=== PATIENT | female | born 1995 | race Caucasian/White ===

== ENCOUNTER 2020-08-10 12:25 | Outpatient (REF) | payer OTHER, SELFPAY | END 2020-08-10 12:26 | disposition home or self-care (01) | LOC: HO.LAB 12:25 | PROVIDERS: Visit Provider Internal Medicine | DX: Z20.828 Contact with and (suspected) exposure to other viral communicable diseases (principal) | CPT/HCPCS: 36415; C9803; U0003 ==

== ENCOUNTER 2020-11-02 22:05 | Emergency (ER) | payer OTHER, SELFPAY ==
--- NOTE | 2020-11-03 00:22 | PC.NURSE ---
0020: ATTEMPTED TO CALL PATIENT INTO ROOM. TOLD BY REGISTRATION THAT PATIENT SAID SHE WAS GOING OUT TO HER CAR. AT THIS TIME SHE HAS NOT RETURNED.
== END 2020-11-03 00:33 | disposition left against medical advice (07) ==
PROVIDERS: Emergency Provider Emergency Medicine
DX: R10.9 Unspecified abdominal pain (principal)

== ENCOUNTER 2020-11-03 12:57 | Emergency (ER) | payer OTHER, SELFPAY ==
--- NOTE | ~2020-11-03 | US_ITS ---
EXAMINATION: ULTRASOUND PELVIC, COMPLETE CLINICAL INFORMATION: . Left-sided pain. Concern for ectopic. COMPARISON: None. TECHNIQUE: Transvaginal: Used to better visualize pelvic structures Transabdominal: Not adequate for visualization Spectral Doppler and color Doppler exam was utilized. LMP: 09/20/2020. Gestational age by LMP is 6 weeks 2 days. MIREYA by LMP is 06/27/2021 FINDINGS: UTERUS: There is a single intrauterine gestation. There is a yolk sac and pole. heart rate 114 bpm. [place]-rump length 0.24 cm. Dating by this measurement is 5 weeks 6 days. MIREYA by ultrasound 06/30/2021 Does appear to be a small subchorionic bleed measuring 0.8 x 0.4 cm, image 52/69. ADNEXA: Ovarian vascularity:Doppler demonstrates both arterial and venous vascular flow in the right and left ovary. No evidence of ovarian torsion. Right Ovary: Corpus luteum cyst right ovary measuring 1.4 x 1.2 x 1.1 cm. The right ovary measures 2.9 x 1.5 x 2.3 cm. Left Ovary: Unremarkable. 2.3 x 1.4 x 1.4 cm Cul-de-sac: No Fluid US/US OB <= 14 weeks fetus IMPRESSION: 1. Single intrauterine gestation with estimated gestational age by this ultrasound of 5 weeks 6 days. MIREYA 06/30/2021. heart rate 114 bpm. 2. Small subchorionic bleed.
--- NOTE | ~2020-11-03 | US_ITS ---
EXAMINATION: ULTRASOUND PELVIC, COMPLETE CLINICAL INFORMATION: . Left-sided pain. Concern for ectopic. COMPARISON: None. TECHNIQUE: Transvaginal: Used to better visualize pelvic structures Transabdominal: Not adequate for visualization Spectral Doppler and color Doppler exam was utilized. LMP: 09/20/2020. Gestational age by LMP is 6 weeks 2 days. MIREYA by LMP is 06/27/2021 FINDINGS: UTERUS: There is a single intrauterine gestation. There is a yolk sac and pole. heart rate 114 bpm. [place]-rump length 0.24 cm. Dating by this measurement is 5 weeks 6 days. MIREYA by ultrasound 06/30/2021 Does appear to be a small subchorionic bleed measuring 0.8 x 0.4 cm, image 52/69. ADNEXA: Ovarian vascularity:Doppler demonstrates both arterial and venous vascular flow in the right and left ovary. No evidence of ovarian torsion. Right Ovary: Corpus luteum cyst right ovary measuring 1.4 x 1.2 x 1.1 cm. The right ovary measures 2.9 x 1.5 x 2.3 cm. Left Ovary: Unremarkable. 2.3 x 1.4 x 1.4 cm Cul-de-sac: No Fluid US/US OB transvaginal IMPRESSION: 1. Single intrauterine gestation with estimated gestational age by this ultrasound of 5 weeks 6 days. MIREYA 06/30/2021. heart rate 114 bpm. 2. Small subchorionic bleed.
[2020-11-03 13:52] VITALS: BP 124/70; PULSE 84; RESP 16; TEMP 36.9; O2SAT 99; BMI 28.3
[2020-11-03 14:04] LABS: Appearance Urine CLEAR; Color Urine YELLOW; Glucose Urine UA NEG (NEG); Leukocyte Esterase Urine NEG (NEG); Nitrite Urine NEG (NEG); PH 6.5 (5.0-8.0); Urine Blood NEG (NEG); Urine Ketones NEG (NEG); Urine Protein NEG (NEG-TRACE)
[2020-11-03 14:05] LABS: UPreg QC Valid YES; Urine Pregnancy POSITIVE (NEGATIVE)
[2020-11-03 14:10] LABS: Bacteria Urine TRACE /LPF; RBC Urine 0 /HPF (0); Squamous Epithelial Cell Urine 2+ /LPF; WBC Urine 0-2 /HPF (0-4)
--- NOTE | 2020-11-03 19:43 | ED.ABDPAIN ---
HPI - Abdominal Pain General Chief Complaint: Abdominal Pain Stated Complaint: ABD PAIN Time Seen by Provider: 11/03/20 19:35 Source: patient Mode of arrival: ambulatory Limitations: no limitations History of Present Illness HPI narrative: 24 yo female here with left pelvic pain, vomiting since yesterday. No bleeding, vaginal discharge, urinary symptoms or diarrhea. LMP 1 month ago (unsure of specific date). MS1. Last ate pretzels 1 hr ago. Related Data Allergies Allergy/AdvReac Type Severity Reaction Status Date / Time No Known Allergies Allergy Verified 11/03/20 19:41 Review of Systems Review of Systems Yes all other systems are reviewed and are negative Constitutional: Reports no additional constitutional complaints, Denies body ache(s), Denies chills, Denies fever(s), Denies headache(s) and Denies weakness Eyes: Reports no additional eye complaints and Denies change in vision Reports system reviewed and no additional complaints, except as documented, Denies dizziness, Denies headache(s), Denies nasal congestion, Denies nasal discharge and Denies neck pain Cardiovascular: Reports no additional cardiovascular complaints, Denies chest pain, Denies leg edema and Denies dyspnea Respiratory: Reports no additional respiratory complaints, Denies cough and Denies dyspnea Gastrointestinal: Reports no additional gastrointestinal complaints, Denies abdominal pain, Denies diarrhea, Reports nausea and Reports vomiting Genitourinary: Reports no additional female genitourinary complaints, Reports pelvic pain and Denies urinary incontinence Musculoskeletal: Reports no additional musculoskeletal complaints, Denies back pain, Denies arthralgias, Denies joint swelling, Denies neck pain, Denies numbness and Denies tingling Skin/Breast: Reports system reviewed and no additional complaints, except as docu and Denies rash Reports system reviewed and no additional complaints, except as documented, Denies Abnormal speech present, Denies dizziness, Denies headache(s), Denies numbness, Denies tingling and Denies weakness Physical Exam Vital Signs: Vital Signs: Last Vital Signs Temp 98.4 F 11/03/20 13:52 Pulse 84 11/03/20 13:52 Resp 16 11/03/20 13:52 BP 124/70 11/03/20 13:52 Pulse Ox 99 11/03/20 13:52 Body Mass Index 28.3 Const: General: cooperative, healthy appearing, comfortable and no acute distress Orientation/consciousness: patient oriented x3 Limitations: no limitations HENMT: Head: Yes normal to inspection Ears: hearing grossly normal bilaterally General nose exam: Normal external nose present Face and sinus: Yes normal facial exam Mouth: Normal oral and palatal mucosa present Throat: Yes posterior oropharynx normal Eyes: General: appearance normal, both eyes and all related structures Pupils: Equal, round and reactive pupils present Neck: Neck: Yes normal visual inspection Chest: Chest palpation & inspection: normal inspection of the chest Resp: Effort & Inspection: normal respiratory effort Auscultation: clear to auscultation bilaterally Cardio: Rate: regular rate Rhythm: regular rhythm Peripheral pulses: Peripheral pulses 2+ throughout GI: Inspection: Yes normal to inspection Palpation (GI): Soft to palpation and Tenderness to palpation present (GI) (Left pelvic, +guarding, no rebound ) Auscultation: normal bowel sounds : Other: Kala GIL present for pelvic exam External Female Exam: normal external appearance Speculum Exam - Vagina: normal vaginal discharge (scant creamy discharge ) Speculum Exam - Cervix: normal appearance of the cervix and normal palpation Bimanual exam- vagina & uterus: normal palpation Bimanual Exam- Adnexa, other: tender (right normal ) on the left Back/Spine/Pelvis: Thoracic/Lumbar Spine: thoracic and lumbar spine normal to inspection Skin: General skin exam: no rashes or lesions noted Neuro: General: patient oriented x3, no focal motor deficits and normal sensation to monofilament Cranial nerves: Yes Equal, round and reactive pupils present Cognition (Neuro): normal cognition Speech: No Abnormal speech present Gait exam (Neuro): Normal gait present Motor exam (neuro): 5/5 motor strength present throughout Extrem: General: Yes normal to inspection Course Course Course Narrative: 24-year-old female here with left pelvic pain and cramping with vomiting times 24 hours. Menses is several days late. Urine is positive. On exam patient has left-sided pelvic discomfort with guarding but no rebound tenderness. Will need labs including beta quant, RH factor. US to r/o ectopic . 2100-Pending US. Pelvic exam shows scant vaginal discharge with mild left adnexal tenderness. Sexually active with one partner. Will send CT NG, BV, trich testing. Sign out to Dr Ying pending above. MDM - Abdominal Pain MDM Narrative Medical decision making narrative: , ectopic , PID, UTI Medical Records Attestation: I reviewed the patient's medical records. Lab Data Attestation: I reviewed the patient's lab results. Result diagrams: 11/03/20 20:06 11/03/20 20:06 Labs: Lab Results 11/03/20 11/03/20 11/03/20 Range/Units 13:46 13:46 20:05 WBC (4.8-10.8) X10*3/uL RBC (4.20-5.50) X10*6/uL Hgb (12.0-16.0) g/dl Hct (37-47) % MCV (80-98) fL MCH (27.0-33.0) pg MCHC (31.0-35.0) g/dl RDW (11.0-16.0) % Plt Count (160-400) X10*3/uL MPV (9.4-12.3) fL Immature Gran % (Auto) (0.0-0.4) % Neut % (Auto) (45-73) % Lymph % (Auto) (20-40) % [place] % (Auto) (2-11) % Eos % (Auto) (0-4) % Baso % (Auto) (0-2) % Lymph # (Auto) (1.2-4.9) X10*3/uL [place] # (Auto) (0.1-1.2) X10*3/uL Eos # (Auto) (0.0-0.4) X10*3/uL Baso # (Auto) (0.0-0.2) X10*3/uL Abs Immat Gran (auto) (0.00-0.03) X10*3/uL Absolute Neuts (auto) (2.0-8.3) X10*3/uL Absolute Nucleated RBC (0.0-0.012) X10*3/uL Nucleated RBC % (auto) (0.0-0.2) /100WBC Hold Blue Top Sodium (135-145) mmol/L Potassium (3.3-5.1) mmol/L Chloride (96-108) mmol/L Carbon Dioxide (22-29) mmol/L Anion Gap (12-20) BUN (9-16) mg/dL Creatinine (0.5-1.4) mg/dL Estim Creat Clear Calc Estimated GFR Random Glucose (60-115) mg/dL Calcium (8.4-10.2) mg/dL Total Bilirubin (0.0-1.0) mg/dL Direct Bilirubin (0.0-0.5) mg/dL AST (5-31) U/L ALT (0-31) U/L Alkaline Phosphatase (39-117) U/L Total Protein (6.5-8.0) g/dL Albumin (3.5-5.0) g/dL Urine Color YELLOW Urine Appearance CLEAR Urine pH 6.5 (5.0-8.0) Ur Specific [place] 1.020 (1.005-1.025) Urine Protein NEG (NEG-TRACE) MG/DL Urine Glucose (UA) NEG (NEG) MG/DL Urine Ketones NEG (NEG) MG/DL Urine Blood NEG (NEG) Urine Nitrite NEG (NEG) Ur Leukocyte Esterase NEG (NEG) Urine RBC 0 (0) /HPF Urine WBC 0-2 (0-4) /HPF Ur Squamous Epith Cells 2+ /LPF Urine Bacteria TRACE /LPF Urine Test POSITIVE H (NEGATIVE) Blood Type O Positive 11/03/20 11/03/20 11/03/20 Range/Units 20:06 20:06 20:06 WBC 6.6 (4.8-10.8) X10*3/uL RBC 4.53 (4.20-5.50) X10*6/uL Hgb 14.2 (12.0-16.0) g/dl Hct 42.8 (37-47) % MCV 94.5 (80-98) fL MCH 31.3 (27.0-33.0) pg MCHC 33.2 (31.0-35.0) g/dl RDW 11.9 (11.0-16.0) % Plt Count 219 (160-400) X10*3/uL MPV 11.2 (9.4-12.3) fL Immature Gran % (Auto) 0.9 H (0.0-0.4) % Neut % (Auto) 57.0 (45-73) % Lymph % (Auto) 32.8 (20-40) % [place] % (Auto) 7.1 (2-11) % Eos % (Auto) 1.7 (0-4) % Baso % (Auto) 0.5 (0-2) % Lymph # (Auto) 2.2 (1.2-4.9) X10*3/uL [place] # (Auto) 0.5 (0.1-1.2) X10*3/uL Eos # (Auto) 0.1 (0.0-0.4) X10*3/uL Baso # (Auto) 0.0 (0.0-0.2) X10*3/uL Abs Immat Gran (auto) 0.06 H (0.00-0.03) X10*3/uL Absolute Neuts (auto) 3.8 (2.0-8.3) X10*3/uL Absolute Nucleated RBC 0.000 (0.0-0.012) X10*3/uL Nucleated RBC % (auto) 0.0 (0.0-0.2) /100WBC Hold Blue Top SEE NOTE Sodium 138 (135-145) mmol/L Potassium 3.9 (3.3-5.1) mmol/L Chloride 103 (96-108) mmol/L Carbon Dioxide 25 (22-29) mmol/L Anion Gap 14 (12-20) BUN 11 (9-16) mg/dL Creatinine 0.76 (0.5-1.4) mg/dL Estim Creat Clear Calc 101.6 Estimated GFR > 60 Random Glucose 90 (60-115) mg/dL Calcium 9.2 (8.4-10.2) mg/dL Total Bilirubin 0.3 (0.0-1.0) mg/dL Direct Bilirubin (0.0-0.5) mg/dL AST 13 (5-31) U/L ALT 12 (0-31) U/L Alkaline Phosphatase 83 (39-117) U/L Total Protein 7.2 (6.5-8.0) g/dL Albumin 4.3 (3.5-5.0) g/dL Urine Color Urine Appearance Urine pH (5.0-8.0) Ur Specific [place] (1.005-1.025) Urine Protein (NEG-TRACE) MG/DL Urine Glucose (UA) (NEG) MG/DL Urine Ketones (NEG) MG/DL Urine Blood (NEG) Urine Nitrite (NEG) Ur Leukocyte Esterase (NEG) Urine RBC (0) /HPF Urine WBC (0-4) /HPF Ur Squamous Epith Cells /LPF Urine Bacteria /LPF Urine Test (NEGATIVE) Blood Type 11/03/20 Range/Units 20:06 WBC (4.8-10.8) X10*3/uL RBC (4.20-5.50) X10*6/uL Hgb (12.0-16.0) g/dl Hct (37-47) % MCV (80-98) fL MCH (27.0-33.0) pg MCHC (31.0-35.0) g/dl RDW (11.0-16.0) % Plt Count (160-400) X10*3/uL MPV (9.4-12.3) fL Immature Gran % (Auto) (0.0-0.4) % Neut % (Auto) (45-73) % Lymph % (Auto) (20-40) % [place] % (Auto) (2-11) % Eos % (Auto) (0-4) % Baso % (Auto) (0-2) % Lymph # (Auto) (1.2-4.9) X10*3/uL [place] # (Auto) (0.1-1.2) X10*3/uL Eos # (Auto) (0.0-0.4) X10*3/uL Baso # (Auto) (0.0-0.2) X10*3/uL Abs Immat Gran (auto) (0.00-0.03) X10*3/uL Absolute Neuts (auto) (2.0-8.3) X10*3/uL Absolute Nucleated RBC (0.0-0.012) X10*3/uL Nucleated RBC % (auto) (0.0-0.2) /100WBC Hold Blue Top Sodium (135-145) mmol/L Potassium (3.3-5.1) mmol/L Chloride (96-108) mmol/L Carbon Dioxide (22-29) mmol/L Anion Gap (12-20) BUN (9-16) mg/dL Creatinine (0.5-1.4) mg/dL Estim Creat Clear Calc Estimated GFR Random Glucose (60-115) mg/dL Calcium (8.4-10.2) mg/dL Total Bilirubin 0.3 (0.0-1.0) mg/dL Direct Bilirubin < 0.2 (0.0-0.5) mg/dL AST 13 (5-31) U/L ALT 13 (0-31) U/L Alkaline Phosphatase 86 (39-117) U/L Total Protein 7.5 (6.5-8.0) g/dL Albumin 4.4 (3.5-5.0) g/dL Urine Color Urine Appearance Urine pH (5.0-8.0) Ur Specific [place] (1.005-1.025) Urine Protein (NEG-TRACE) MG/DL Urine Glucose (UA) (NEG) MG/DL Urine Ketones (NEG) MG/DL Urine Blood (NEG) Urine Nitrite (NEG) Ur Leukocyte Esterase (NEG) Urine RBC (0) /HPF Urine WBC (0-4) /HPF Ur Squamous Epith Cells /LPF Urine Bacteria /LPF Urine Test (NEGATIVE) Blood Type [facility] Past Medical History Attestation statement: The following information was validated with the patient. Source: old records reviewed and nursing notes reviewed Medical History No known health problems Social History Social History Advance Directives: No Advance Directives Information Provided: No
--- NOTE | 2020-11-03 19:52 | PC.NURSE ---
[facility] CALLS AT 1948 TO REQUEST PATIENT'S QUANT TO BE DRAWN PRIOR TO US EXAM. THIS US NOTIFIED RN AT 1949 AND RN STATES BACK THAT THEY UNDERSTAND AND THEY COMPLETE IT IN A TIMELY MANNER.
[2020-11-03 20:15] LABS: MANUAL DIFF FLAG NO
[2020-11-03 20:16] LABS: Basophils Percent Auto 0.5 % (0-2); Eosinophils Absolute Auto 0.1 X10*3/uL (0.0-0.4); Eosinophils Percent Auto 1.7 % (0-4); Hematocrit 42.8 % (37-47); Hemoglobin 14.2 g/dl (12.0-16.0); Imm Gran Abs Auto 0.06 X10*3/uL (0.00-0.03); Imm Gran Pct Auto 0.9 % (0.0-0.4); Lymphocytes Absolute Auto 2.2 X10*3/uL (1.2-4.9); Lymphocytes Percent Auto 32.8 % (20-40); Mean Corpuscular HGB Conc 33.2 g/dl (31.0-35.0); Mean Corpuscular Hemoglobin 31.3 pg (27.0-33.0); Mean Corpuscular Volume 94.5 fL (80-98); Mean Platelet Volume 11.2 fL (9.4-12.3); Monocytes Absolute Auto 0.5 X10*3/uL (0.1-1.2); Monocytes Percent Auto 7.1 % (2-11); Neutrophils Absolute Auto 3.8 X10*3/uL (2.0-8.3); Platelet Count 219 X10*3/uL (160-400); Red Blood Count 4.53 X10*6/uL (4.20-5.50); Red Cell Distribution Width 11.9 % (11.0-16.0); White Blood Count 6.6 X10*3/uL (4.8-10.8)
[2020-11-03 20:44] LABS: Alanine Aminotransferase 12 U/L (0-31); Alanine Aminotransferase 13 U/L (0-31); Albumin Level 4.3 g/dL (3.5-5.0); Albumin Level 4.4 g/dL (3.5-5.0); Alkaline Phosphatase 83 U/L (39-117); Alkaline Phosphatase 86 U/L (39-117); Anion Gap 14 (12-20); Aspartate Amino Transferase 13 U/L (5-31); Bilirubin Direct < 0.2 mg/dL (0.0-0.5); Bilirubin Total 0.3 mg/dL (0.0-1.0); Blood Urea Nitrogen 11 mg/dL (9-16); Calcium 9.2 mg/dL (8.4-10.2); Carbon Dioxide 25 mmol/L (22-29); Chloride 103 mmol/L (96-108); Creatinine Clr Calc Pharmacy 101.6; Estimated Glomerular Filt Rate > 60; Glucose Random 90 mg/dL (60-115); Potassium 3.9 mmol/L (3.3-5.1); Sodium 138 mmol/L (135-145); Total Protein 7.2 g/dL (6.5-8.0); Total Protein 7.5 g/dL (6.5-8.0)
[2020-11-03 21:07] LABS: HCG Quantitative 19962 mIU/mL
[2020-11-03 21:51] VITALS: BP 117/61; PULSE 85; RESP 18; TEMP 36.8; O2SAT 100
[2020-11-04 05:08] LABS: CT PCR NOT DETECTED (Not Detect.); NG PCR NOT DETECTED (Not Detect.)
[2020-11-04 14:28] LABS: BV Int Neg Control Negative (Negative); BV Int Pos Control Positive (Positive)
== END 2020-11-03 22:53 | disposition home or self-care (01) ==
PROVIDERS: Emergency Medicine; Nurse Practitioner Family; Emergency Provider Emergency Medicine Emergency Medical Services
DX: O26.91 Pregnancy related conditions, unspecified, first trimester (principal); R10.2 Pelvic and perineal pain; Z3A.01 Less than 8 weeks gestation of pregnancy
CPT/HCPCS: 36415; 76801; 76817; 80053; 80076; 81001; 81025; 84702; 85025; 86900; 86901; 87480; 87491; 87510; 87591; 87660; 99283

== ENCOUNTER → 2020-11-29 14:42 | Outpatient (BNVA) | payer SELFPAY | DX: Z11.1 Encounter for screening for respiratory tuberculosis (principal) ==

== ENCOUNTER 2021-01-29 14:31 | Emergency (ER) | payer OTHER, SELFPAY ==
--- NOTE | ~2021-01-29 | US_ITS ---
EXAMINATION: A SONOGRAM OF THE LIMITED. CLINICAL INFORMATION: 80 weeks with cramping x4 COMPARISON: None TECHNIQUE: Transabdominal ultrasound imaging of pelvis is performed. . FINDINGS: There is a single live intrauterine fetus with a heart rate of 1 52 bpm. There is good movement visualized the placenta is anterior and is homogeneous. No focal lesion or hematoma seen. Both ovaries are not visualized US/US OB limited IMPRESSION: Live intrauterine fetus with good movement. heart rate is 152 bpm. Normal anterior placenta.
[2021-01-29 14:33] VITALS: BP 133/78; PULSE 100; RESP 18; TEMP 36.7; O2SAT 98; BMI 31.4
--- NOTE | 2021-01-29 15:04 | ED.GENADULT ---
HPI - General Adult General Chief complaint: General Medical Stated complaint: cramping () Time Seen by Provider: 01/29/21 14:53 Source: patient Mode of arrival: ambulatory Limitations: no limitations History of Present Illness HPI narrative: 25-year-old female currently 18 2/7 weeks with an MIREYA of 06/30/2021 here with complaints of lower abdominal cramping for the last 4 days. She has not had any bleeding. No urinary symptoms, fevers, chills, nausea, vomiting. Followed by [facility]. Related Data Allergies Allergy/AdvReac Type Severity Reaction Status Date / Time No Known Allergies Allergy Verified 11/03/20 19:41 Review of Systems Review of Systems: Yes all other systems are reviewed and are negative Constitutional: Constitutional: Reports no additional constitutional complaints, Denies body ache(s), Denies chills, Denies fever(s), Denies headache(s) and Denies weakness Eyes: Eyes: Reports no additional eye complaints and Denies change in vision ENT: Reports system reviewed and no additional complaints, except as documented, Denies dizziness, Denies headache(s), Denies nasal congestion, Denies nasal discharge and Denies neck pain Cardiovascular: Cardiovascular: Reports no additional cardiovascular complaints, Denies chest pain, Denies leg edema and Denies dyspnea Respiratory: Respiratory: Reports no additional respiratory complaints, Denies cough and Denies dyspnea Gastrointestinal: Gastrointestinal: Reports no additional gastrointestinal complaints, Reports abdominal pain (abdominal cramping ), Denies diarrhea, Denies nausea and Denies vomiting Genitourinary: Genitourinary: Reports no additional female genitourinary complaints and Denies urinary incontinence Musculoskeletal: Musculoskeletal: Reports no additional musculoskeletal complaints, Denies back pain, Denies arthralgias, Denies joint swelling, Denies neck pain, Denies numbness and Denies tingling Integumentary/Breasts: Skin/Breast: Reports system reviewed and no additional complaints, except as docu and Denies rash Neurologic: Reports system reviewed and no additional complaints, except as documented, Denies Abnormal speech present, Denies dizziness, Denies headache(s), Denies numbness, Denies tingling and Denies weakness REPLACED BY [facility] Past Medical History Attestation statement: The following information was validated with the patient. Source: old records reviewed and nursing notes reviewed Medical History No known health problems Social History Social History Alcohol intake: never Patient Tobacco Use Status: Never used Tobacco Use of substances other than those prescribed or required for medical reasons: No Advance Directives: No Advance Directives Information Provided: No Patient : No Physical Exam Vital Signs: Vital Signs: Last Vital Signs Temp 98.0 F 01/29/21 14:33 Pulse 100 01/29/21 14:33 Resp 18 01/29/21 14:33 BP 133/78 01/29/21 14:33 Pulse Ox 98 01/29/21 14:33 Body Mass Index 31.4 Const: General: cooperative, healthy appearing, comfortable and no acute distress Orientation/consciousness: patient oriented x3 Limitations: no limitations HENMT: Head: Yes normal to inspection Ears: hearing grossly normal bilaterally General nose exam: Normal external nose present Face and sinus: Yes normal facial exam Mouth: Normal oral and palatal mucosa present Throat: Yes posterior oropharynx normal Eyes: General: appearance normal, both eyes and all related structures Pupils: Equal, round and reactive pupils present Neck: Neck: Yes normal visual inspection Chest: Chest palpation & inspection: normal inspection of the chest Resp: Effort & Inspection: normal respiratory effort Auscultation: clear to auscultation bilaterally Cardio: Rate: regular rate Rhythm: regular rhythm Peripheral pulses: Peripheral pulses 2+ throughout GI: Other: + Auscultation: normal bowel sounds : 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: 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 External Female Exam: normal external appearance Speculum Exam - Vagina: normal appearance of the vagina Speculum Exam - Cervix: normal appearance of the cervix Back/Spine/Pelvis: Thoracic/Lumbar Spine: thoracic and lumbar spine normal to inspection Skin: General skin exam: no rashes or lesions noted Neuro: General: patient oriented x3, no focal motor deficits and normal sensation to monofilament Cranial nerves: Yes Equal, round and reactive pupils present Cognition (Neuro): normal cognition Speech: No Abnormal speech present Gait exam (Neuro): Normal gait present Motor exam (neuro): 5/5 motor strength present throughout Extrem: General: Yes normal to inspection, Yes no pedal edema and Yes no calf tenderness Course Course Course Narrative: 25 yo female currently 18 2/7 weeks here with complaints of lower abdominal cramping x 4 weeks with no vaginal bleeding. Followed by [facility]. Lives in [place]. Came here to [place] today. On exam well appearing. No focal tenderness in the abdomen. Again no reports of bleeding. FHT 155 D/w with Dr Price from OB here who recommends labs, UA, US, pelvic exam. Will place PIV and give NSB and PO tylenol and re-assess. 1649- pelvic exam shows a closed cervical os. No bleeding. Ultrasound confirms with good movement and heart tone of 150s. labs are all unremarkable. UA negative. Cramping resolved after 750ml NS, will let additional 250ml NS infuse. Updated Dr Price from OB who agrees patient can be discharged with her own OB follow-up Sunday. 1699-Sign out to Memo [employer]IM[employer] HERDER pending above. Medical Decision Making MDM Narrative Medical decision making narrative: Pre-term labor Dehydration Medical Records Medical records reviewed: Yes I reviewed the patient's medical records. Lab Data Lab results reviewed: Yes I reviewed the patient's lab results. Result diagrams: 01/29/21 15:44 01/29/21 15:44 Labs: Lab Results 01/29/21 01/29/21 01/29/21 Range/Units 15:44 15:44 15:47 WBC 7.1 (4.8-10.8) X10*3/uL RBC 3.52 L D (4.20-5.50) X10*6/uL Hgb 11.1 L D (12.0-16.0) g/dl Hct 32.7 L D (37-47) % MCV 92.9 (80-98) fL MCH 31.5 (27.0-33.0) pg MCHC 33.9 (31.0-35.0) g/dl RDW 11.6 (11.0-16.0) % Plt Count 159 L D (160-400) X10*3/uL MPV 11.2 (9.4-12.3) fL Immature Gran % (Auto) 2.0 H (0.0-0.4) % Neut % (Auto) 68.5 (45-73) % Lymph % (Auto) 20.7 (20-40) % [place] % (Auto) 7.6 (2-11) % Eos % (Auto) 1.1 (0-4) % Baso % (Auto) 0.1 (0-2) % Lymph # (Auto) 1.5 (1.2-4.9) X10*3/uL [place] # (Auto) 0.5 (0.1-1.2) X10*3/uL Eos # (Auto) 0.1 (0.0-0.4) X10*3/uL Baso # (Auto) 0.0 (0.0-0.2) X10*3/uL Abs Immat Gran (auto) 0.14 H (0.00-0.03) X10*3/uL Absolute Neuts (auto) 4.9 (2.0-8.3) X10*3/uL Absolute Nucleated RBC 0.000 (0.0-0.012) X10*3/uL Nucleated RBC % (auto) 0.0 (0.0-0.2) /100WBC Sodium 136 (135-145) mmol/L Potassium 3.8 (3.3-5.1) mmol/L Chloride 107 (96-108) mmol/L Carbon Dioxide 22 (22-29) mmol/L Anion Gap 11 L (12-20) BUN 8 L (9-16) mg/dL Creatinine 0.59 (0.5-1.4) mg/dL Estim Creat Clear Calc 131.2 Estimated GFR > 60 Random Glucose 102 (60-115) mg/dL Calcium 8.4 D (8.4-10.2) mg/dL Total Bilirubin 0.2 (0.0-1.0) mg/dL Direct Bilirubin < 0.2 (0.0-0.5) mg/dL AST 18 (5-31) U/L ALT 19 (0-31) U/L Alkaline Phosphatase 59 D (39-117) U/L Total Protein 5.7 L D (6.5-8.0) g/dL Albumin 3.3 L D (3.5-5.0) g/dL Beta HCG, Quant 49948 mIU/mL Urine Color YELLOW Urine Appearance HAZY Urine pH 6.5 (5.0-8.0) Ur Specific [place] 1.010 (1.005-1.025) Urine Protein NEG (NEG-TRACE) MG/DL Urine Glucose (UA) NEG (NEG) MG/DL Urine Ketones NEG (NEG) MG/DL Urine Blood NEG (NEG) Urine Nitrite NEG (NEG) Ur Leukocyte Esterase TRACE H (NEG) Urine RBC 0-2 (0) /HPF Urine WBC 1-4 (0-4) /HPF Ur Squamous Epith Cells 1+ /LPF Amorphous Sediment 2+ /LPF Urine Bacteria TRACE /LPF Imaging Data US - abdomen: Attestation: I personally reviewed and interpreted this imaging study as follows: Radiologist's impression: FINDINGS: There is a single live intrauterine fetus with a heart rate of 1 52 bpm. There is good movement visualized the placenta is anterior and is homogeneous. No focal lesion or hematoma seen. Both ovaries are not visualized US/US OB limited IMPRESSION: Live intrauterine fetus with good movement. heart rate is 152 bpm. Normal anterior placenta. Discharge Plan Discharge Clinical Impression: Abdominal cramping Currently Qualifiers: Weeks of gestation: 18 weeks Qualified Code(s): Z3A.18 - 18 weeks gestation of Patient Disposition: Home, Self-Care Instructions: Abdominal Pain (ED), at 15 to 18 Weeks (ED) Additional Instructions: Stay well hydrated call your OB Sunday to follow up We no longer have a labor and delivery unit but are always willing to see you. If you require further care then we can offer then we will refer you to [facility] Monitor and seek care for vaginal bleeding, continued abdominal pain
--- NOTE | 2021-01-29 15:16 | PC.NURSE ---
heart tones obtained, pt resting comfortably in stretcher eating popcorn.
[2021-01-29 15:50] LABS: MANUAL DIFF FLAG NO
[2021-01-29] MEDS: Acetaminophen 325 MG TABLET 975 MG PO (15:51)
[2021-01-29] MEDS: 0.9 % Sodium Chloride 1,000 ML 999 ML IV (15:51)
[2021-01-29 15:53] LABS: Basophils Percent Auto 0.1 % (0-2); Eosinophils Absolute Auto 0.1 X10*3/uL (0.0-0.4); Eosinophils Percent Auto 1.1 % (0-4); Hematocrit 32.7 % (37-47); Hemoglobin 11.1 g/dl (12.0-16.0); Imm Gran Abs Auto 0.14 X10*3/uL (0.00-0.03); Lymphocytes Absolute Auto 1.5 X10*3/uL (1.2-4.9); Lymphocytes Percent Auto 20.7 % (20-40); Mean Corpuscular HGB Conc 33.9 g/dl (31.0-35.0); Mean Corpuscular Hemoglobin 31.5 pg (27.0-33.0); Mean Corpuscular Volume 92.9 fL (80-98); Mean Platelet Volume 11.2 fL (9.4-12.3); Monocytes Absolute Auto 0.5 X10*3/uL (0.1-1.2); Monocytes Percent Auto 7.6 % (2-11); Neutrophils Absolute Auto 4.9 X10*3/uL (2.0-8.3); Neutrophils Percent Auto 68.5 % (45-73); Platelet Count 159 X10*3/uL (160-400); Red Blood Count 3.52 X10*6/uL (4.20-5.50); Red Cell Distribution Width 11.6 % (11.0-16.0); White Blood Count 7.1 X10*3/uL (4.8-10.8)
[2021-01-29 15:57] LABS: Glucose Urine UA NEG (NEG); Leukocyte Esterase Urine TRACE (NEG); Nitrite Urine NEG (NEG); PH 6.5 (5.0-8.0); UACC Culture Trigger YES; Urine Blood NEG (NEG); Urine Ketones NEG (NEG); Urine Protein NEG (NEG-TRACE)
[2021-01-29 16:07] LABS: Appearance Urine HAZY; Color Urine YELLOW
[2021-01-29 16:20] LABS: RBC Urine 0-2 /HPF (0); Squamous Epithelial Cell Urine 1+ /LPF
[2021-01-29 16:21] LABS: Amorphous Sediment Urine 2+ /LPF; Bacteria Urine TRACE /LPF
[2021-01-29 16:28] LABS: Alanine Aminotransferase 19 U/L (0-31); Albumin Level 3.3 g/dL (3.5-5.0); Alkaline Phosphatase 59 U/L (39-117); Anion Gap 11 (12-20); Aspartate Amino Transferase 18 U/L (5-31); Bilirubin Direct < 0.2 mg/dL (0.0-0.5); Blood Urea Nitrogen 8 mg/dL (9-16); Calcium 8.4 mg/dL (8.4-10.2); Carbon Dioxide 22 mmol/L (22-29); Chloride 107 mmol/L (96-108); Creatinine Clr Calc Pharmacy 131.2; Estimated Glomerular Filt Rate > 60; Glucose Random 102 mg/dL (60-115); Potassium 3.8 mmol/L (3.3-5.1); Sodium 136 mmol/L (135-145); Total Protein 5.7 g/dL (6.5-8.0)
[2021-01-29 16:36] LABS: Bilirubin Total 0.2 mg/dL (0.0-1.0)
[2021-01-29 16:54] LABS: HCG Quantitative 13993 mIU/mL
== END 2021-01-29 17:26 | disposition home or self-care (01) ==
PROVIDERS: Nurse Practitioner Family; Emergency Provider Emergency Medicine
DX: O26.892 Other specified pregnancy related conditions, second trimester (principal); R10.9 Unspecified abdominal pain; Z3A.18 18 weeks gestation of pregnancy
CPT/HCPCS: 36415; 76815; 80048; 80076; 81001; 81003; 84702; 85025; 96360; 99284

== ENCOUNTER 2021-10-01 19:51 | Emergency (ER) | payer OTHER, SELFPAY ==
[2021-10-01 19:54] VITALS: BP 127/82; PULSE 110; RESP 19; TEMP 37; O2SAT 98; BMI 30.2
--- NOTE | 2021-10-01 20:48 | ED.SKABFB ---
HPI - Skin/Abscess/Foreign Bdy General Chief complaint: Skin/Abscess/Foreign Body Stated complaint: abscess Time Seen by Provider: 10/01/21 20:41 Source: patient Mode of arrival: ambulatory Limitations: no limitations History of Present Illness HPI narrative: Patient noticed small swelling in the left axillary area for last 4 days getting bigger with increased tenderness does not get infection very often use warm compresses without much relief no fever patient is not anymore Related Data Previous Rx's Medication Instructions Recorded cephalexin 500 mg capsule 500 mg PO QID 10 Days #40 cap 10/01/21 doxycycline hyclate 100 mg tablet 100 mg PO BID #20 tab 10/01/21 ibuprofen 600 mg tablet 600 mg PO Q6H PRN #20 tab 10/01/21 Allergies Allergy/AdvReac Type Severity Reaction Status Date / Time No Known Allergies Allergy Verified 10/01/21 19:54 Review of Systems Review of Systems: Yes all other systems are reviewed and are negative PMFSH Past Medical History Medical History No known health problems Social History Social History Alcohol intake: never Patient Tobacco Use Status: Never used Tobacco Advance Directives: No Advance Directives Information Provided: Yes Physical Exam Vital Signs: Vital Signs: Last Vital Signs Temp 98.6 F 10/01/21 19:54 Pulse 110 H 10/01/21 19:54 Resp 19 10/01/21 19:54 BP 127/82 10/01/21 19:54 Pulse Ox 98 10/01/21 19:54 BMI result Body Mass Index 30.2 Appearance: Alert. Oriented X3. No acute distress. ENT: Pharynx normal. Oral Mucosa moist Neck: Normal inspection. Neck supple. CVS: Normal heart rate and rhythm. Pulses normal. Respiratory: No respiratory distress. Abdomen: Soft and nontender. Skin: 3 x 3 cm fluctuance tender swelling left axilla Neuro: Oriented X 3. Procedures Abscess I/D Site: upper extremity (Left axis) Side (if applicable): left Local Anesthetic: lidocaine 2% Amount of anesthesia used (mL): 5 Technique: incised with blade Amount of fluid expressed (mL): 3 Sent for culture/gram staining?: No Irrigation: No Packing used?: none Discharge Plan Discharge Clinical Impression: Abscess of skin or subcutaneous tissue Patient Disposition: Home, Self-Care Instructions: Abscess Incision and Drainage (DC) Additional Instructions: Local care as advised Warm compresses Antibiotic as prescribed For the PCP/ER if worsening of the swelling or pain Prescriptions: New cephalexin 500 mg capsule 500 mg PO QID 10 Days Qty: 40 0RF ibuprofen 600 mg tablet 600 mg PO Q6H PRN (Reason: pain) Qty: 20 0RF doxycycline hyclate 100 mg tablet 100 mg PO BID Qty: 20 0RF Interventions: ED Discharge Assessment Last Done: 10/01/21 21:41 Discharge Date/Time: 10/01/21 21:45
[2021-10-01] MEDS: cephALEXin 500 MG CAPSULE PO (21:25)
[2021-10-01] MEDS: Ibuprofen 600 MG TABLET PO (21:25)
[2021-10-01] MEDS: Lidocaine HCl 2 % MPF 5 ML VIAL INFILTRATI (21:26)
== END 2021-10-01 21:45 | disposition home or self-care (01) ==
PROVIDERS: Emergency Provider Internal Medicine
DX: L02.412 Cutaneous abscess of left axilla (principal)
CPT/HCPCS: 10060; 99284

== ENCOUNTER 2024-09-30 10:48 | Outpatient (AMB) | payer OTHER, SELFPAY ==
--- NOTE | 2024-09-30 11:08 | A.OFFPC_ITS ---
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 Patient was last seen about 5 years ago by [facility] and has not been seen in adult primary care in the past. Presenting with concerns related to hormonal contraceptive side effects and recurrent migraines. She has been using Nexplanon for approximately four years and notices significant hormonal changes since its insertion, such as increased facial hair and weight gain difficulties, prompting her desire to discuss alternate contraceptive methods. Reports monthly migraines characterized by unilateral pain and ocular involvement, seemingly triggered by stress and not relieved by typical analgesics. She experiences mild anxiety, attributed partially to the caregiving demands of her disabled son, and has had a non-cardiac chest pain episode evaluated in an ER setting. [facility] Medical History No known health problems Surgical History No pertinent past surgical history Family History Mother Hypertension Father No problems noted. Social History Housing: House Alcohol intake: never Patient Tobacco Use Status: Never used Tobacco e-Cigarette/Vaping Use: Never Used Second Hand Smoke Exposure: No service: No Current occupational status: employed Current occupational exposures/hazards: No Cognitive needs: No Hearing needs: No Vision needs: No Female Reproductive History Menstrual control method: implanted Total pregnancies: 1 Full term: 1 History of abnormal pap smear: No Questionnaire PHQ-9 Over the last 2 weeks, how often have you been bothered by any of the following problems? 1. Little interest or pleasure in doing things: not at all 2. Feeling down, depressed, or hopeless: not at all 3. Trouble falling or staying asleep, or sleeping too much: not at all 4. Feeling tired or having little energy: several days 5. Poor appetite or overeating: several days 6. Feeling bad about yourself - or that you are a failure or have let yourself or your family down: not at all 7. Trouble concentrating on things, such as reading the newspaper or watching television: not at all 8. Moving or speaking so slowly that other people could have noticed. Or the opposite - being so fidgety or restless that you have been moving around a lot more than usual: not at all 9. Thoughts that you would be better off or of hurting yourself in some way: not at all Total score: 2 Depression Screening Interpretation: Negative Depression Screening Done: Yes Source: Developed by Drs. Evan José, Freida Soriano, Rosendo Laguerre and colleagues, with an educational christie from [facility]. Thrive Questionnaire Date Thrive assessed: 09/30/24 I am a: Patient What is your living situation today?: I have a steady place to live Within the past 12 months, did the food you bought not last and you didn't have the money to get more?: Sometimes True Within the past 12 months, did you worry whether your food would run out before you got money to buy more?: Sometimes True Do you have trouble paying for medicines?: No Do you have trouble getting transportation to medical appointments?: No Do you have trouble paying your heating and electricity bill?: No Do you have trouble taking care of your child, family member or friend?: No Do you have trouble with day-to-day activities such as bathing, preparing meals, shopping, managing finances, etc.?: No Are you currently unemployed and looking for a job?: No Are you interested in more education?: I choose not to answer this question Please select the resources that you would like help with: None Currently or been in a relationship where the following occur: No concerns reported THRIVE Score: 2 AUDIT C Alcohol Use Questionnaire (AUDIT-C) 1. How often do you have a drink containing alcohol?: Never Total Score: 0 ZAY-7 AMB Questionnaire ZAY-7 Date ZAY - 7 assessed: 09/30/24 Feeling nervous, anxious, or on edge: 0 = Not at all Not being able to stop or control worryin = Not at all Worrying too much about different things: 0 = Not at all Trouble relaxin = Several days Being so restless that it is hard to sit still: 0 = Not at all Becoming easily annoyed or irritable: 0 = Not at all Feeling afraid as if something awful might happen: 0 = Not at all Total ZAY-7 score (0-4 normal; 5-9 mild; 10-14 moderate; 15-21 severe): 1 Source: Developed by Drs. Evan José, Freida Soriano, Rosendo Laguerre and colleagues, with an educational christie from [facility]. Review of Systems Const Denies body aches, Denies chills, Denies fever(s), Reports headache(s) (monthly) and Denies poor appetite Eyes Details: Difficulty with nighttime driving ENT Denies dysphagia, Denies dizziness, Reports headache(s) (monthly) and Denies odynophagia Card Denies chest pain, Denies irregular heart rhythm, Denies lightheadedness and Denies dyspnea Resp Denies dyspnea GI Denies abdominal pain, Denies constipation, Denies dysphagia, Denies diarrhea, Denies nausea, Denies odynophagia and Denies vomiting Reports no additional complaints Musc Reports no additional complaints and Denies abnormal gait Skin/Breast Reports system reviewed and no additional complaints, except as documented Neuro Denies abnormal gait, Denies dizziness and Reports headache(s) (monthly) Psych Reports no additional complaints Physical exam (Primary Care) Vital Signs: Last Vital Signs Pulse 76 09/30/24 11:10 BP 120/82 09/30/24 11:10 Pulse Ox 98 09/30/24 11:10 Oxygen Delivery Method Room Air 09/30/24 11:10 BMI result Body Mass Index 38.7 Tobacco/Smoking Status: Tobacco use Status Tobacco use date assessed 09/30/24 09/30/24 11:16 Patient Tobacco Use Status Never used Tobacco 09/30/24 11:16 e-Cigarette/Vaping Use Never Used 09/30/24 11:16 PHQ-9: PHQ-9 Score PHQ-9: Total score 2 09/30/24 11:16 Depression Screening Interpretation: Negative Thrive Assessment: Date of Thrive Assessment Date Thrive assessed 09/30/24 09/30/24 11:16 Currently or been in a relationship where the following occur: No concerns reported Const General: cooperative, healthy appearing, comfortable and no acute distress Orientation/consciousness: patient oriented x3 HENMT Head: Yes normocephalic Ears: hearing grossly normal bilaterally General nose exam: Normal external nose present Eyes General: appearance normal, both eyes and all related structures Conjunctivae: conjunctivae normal Neck Neck: Yes full ROM and Yes no lymphadenopathy Resp Effort & Inspection: normal respiratory effort Auscultation: clear to auscultation bilaterally, no crackles, no rales, no rhonchi and no wheezes Cardio Rate: regular rate Rhythm: regular rhythm Skin General skin exam: no rashes or lesions noted Neuro General: patient oriented x3 Gait exam (Neuro): Normal gait present Extrem General: Yes normal to inspection, Yes full ROM and No edema Psych Affect: normal affect Attitude: cooperative Insight: Good insight present (Psych) Judgement: Good judgement present (Psych) Coding Level of Care Code New Pt Level 4 (38211) Diagnoses Nexplanon in place Z97.5 Hirsutism L68.0 Anxiety F41.9 Migraine G43.909 Decreased vision H54.7 Obesity E66.9 Assessment & Plan Assessment & Plan (1) Nexplanon in place: Code(s): Z97.5 - Presence of (intrauterine) contraceptive device Category: Social Hx Plan: Referral placed today to gynecology for removal of the Nexplanon and discussion for non hormonal control options. (2) Hirsutism: Code(s): L68.0 - Hirsutism Category: Medical Plan: Patient having facial hair growth that began after the placement of Nexplanon. Referral placed today to gynecology for removal of the Nexplanon and discussion for non hormonal control options. (3) Anxiety: Code(s): F41.9 - Anxiety disorder, unspecified Category: Medical Plan: Patient having occasional anxiety referral placed to counseling today. Declines medication. (4) Migraine: Code(s): G43.909 - Migraine, unspecified, not intractable, without status migrainosus Category: Medical Plan: Patient complaining of migraine headaches typically once per month. She describes these headaches as one-sided often with ocular concerns as well. She uses Tylenol for the headaches without good relief. We will trial sumatriptan as needed for migraine headaches and follow up in 3 months. Reviewed red flag symptoms of migraines and when to present for re-evaluation. (5) Decreased vision: Code(s): H54.7 - Unspecified visual loss Category: Medical Plan: Referral placed to eye doctor today for difficulty driving at night. (6) Obesity: Code(s): E66.9 - Obesity, unspecified Category: Medical Plan: Healthy diet and regular exercise is encouraged. Plan Ordered for blood work and plan to follow up in 3 months for annual physical. Patient was informed and verbally consented to the use of an ambient scribe for clinic note documentation during this visit. This note was constructed using voice recognition software. While every effort has been made to ensure accuracy and measuring machine operator, still areas may have been included sometimes these areas may affect the content or meeting of the given symptoms. Total time spent caring for the patient today was 30 minutes. This includes time spent before the visit reviewing the chart, time spent during the visit, and time spent after the visit and documentation. Orders: Orders Complete Blood Count Auto Diff Today Z00.00 - Encounter for general adult medical examination without abnormal findings Comprehensive Met. Panel Today Z00.00 - Encounter for general adult medical examination without abnormal findings Free T4 (Free Thyroxine) Today Z00.00 - Encounter for general adult medical examination without abnormal findings Vitamin B12 and Folate Today Z00.00 - Encounter for general adult medical examination without abnormal findings Vitamin D 25-OH Total Today Z00.00 - Encounter for general adult medical examination without abnormal findings TSH reflex Free T4 Today Z00.00 - Encounter for general adult medical e xamination without abnormal findings Referrals Counseling Referral F41.9 - Anxiety disorder, unspecified 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 SPECIALIST Referral L68.0 - Hirsutism, Z12.4 - Encounter for screening for malignant neoplasm of cervix, Z97.5 - Presence of (intrauterine) contraceptive device Optometry Referral H54.7 - Unspecified visual loss Medications: New sumatriptan succinate take 1 tab at onset of headache; if no relief may repeat 1 tab after at least 2 hrs; max = 4 tabs/24 hr PO 30 tabs 0RF Discontinued cephalexin Discontinued Reason: Patient Completed Course 500 mg PO QID 10 days 40 caps 0RF ibuprofen Discontinued Reason: Patient Completed Course 600 mg PO Q6H PRN 20 tabs 0RF pain doxycycline hyclate Discontinued Reason: Patient Completed Course 100 mg PO BID 20 tabs 0RF
[2024-09-30 11:10] VITALS: BP 120/82; PULSE 76; O2SAT 98; BMI 38.7
== END 2024-09-30 11:38 | disposition home or self-care (01) ==
DX: G43.909 Migraine, unspecified, not intractable, without status migrainosus (principal); Z97.5 Presence of (intrauterine) contraceptive device; Z68.38 Body mass index [BMI] 38.0-38.9, adult; E66.9 Obesity, unspecified; H54.7 Unspecified visual loss; L68.0 Hirsutism; F41.9 Anxiety disorder, unspecified

== ENCOUNTER 2024-10-02 09:14 | Outpatient (REF) | payer OTHER, SELFPAY ==
[2024-10-02 13:49] LABS: MANUAL DIFF FLAG NO
[2024-10-02 14:24] LABS: Basophils Percent Auto 0.5 % (0-2); Eosinophils Absolute Auto 0.1 X10*3/uL (0.0-0.4); Hematocrit 40.6 % (37.0-47.0); Hemoglobin 13.7 g/dl (12.0-16.0); Imm Gran Abs Auto 0.03 X10*3/uL (0.00-0.03); Imm Gran Pct Auto 0.5 % (0.0-0.4); Lymphocytes Absolute Auto 2.5 X10*3/uL (1.2-4.9); Lymphocytes Percent Auto 41.3 % (20-40); Mean Corpuscular HGB Conc 33.7 g/dl (31.0-35.0); Mean Corpuscular Hemoglobin 30.7 pg (27.0-33.0); Mean Platelet Volume 11.5 fL (9.4-12.3); Monocytes Absolute Auto 0.4 X10*3/uL (0.1-1.2); Monocytes Percent Auto 7.3 % (2-11); Neutrophils Percent Auto 49.4 % (45-73); Platelet Count 192 X10*3/uL (160-400); Red Blood Count 4.46 X10*6/uL (4.20-5.50); Red Cell Distribution Width 12.1 % (11.0-16.0)
[2024-10-02 15:11] LABS: Alanine Aminotransferase 28 U/L (0-31); Albumin Level 4.1 g/dL (3.5-5.0); Alkaline Phosphatase 86 U/L (39-117); Anion Gap 11 (12-20); Aspartate Amino Transferase 22 U/L (5-31); Bilirubin Total 0.4 mg/dL (0.0-1.0); Blood Urea Nitrogen 20 mg/dL (9-16); Carbon Dioxide 26 mmol/L (22-29); Chloride 106 mmol/L (96-108); Estimated Glomerular Filt Rate > 60; Glucose Random 116 mg/dL (60-115); Potassium 3.9 mmol/L (3.3-5.1); Sodium 139 mmol/L (135-145); Total Protein 8.1 g/dL (6.5-8.0)
[2024-10-02 15:36] LABS: Free T4 (Free Thyroxine) 0.84 ng/dL (0.71-1.85); TSH reflex Free T4 1.23 uIU/mL (0.32-4.0)
[2024-10-02 15:43] LABS: Vitamin B12 513 pg/mL (200-900)
== END 2024-10-02 09:15 | disposition home or self-care (01) ==
LOC: HO.LAB 09:14
DX: Z00.00 Encounter for general adult medical examination without abnormal findings (principal)
CPT/HCPCS: 36415; 80053; 82306; 82607; 82746; 84439; 84443; 85025

== ENCOUNTER 2024-10-08 13:46 | Outpatient (AMB) | payer OTHER, SELFPAY ==
--- NOTE | 2024-10-08 13:52 | MHC.OFFVIS ---
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 History of Nexplanon placed over 3 years ago. She also reports facial hair growth acne in areola nipple hair during the time of her Nexplanon being placed. She reports her cycles frequency was normal prior to her , heavy x 4/6d. No bleeding while on Nexplanon until the device was . Has had 1 cycle. History of migraines with aura. She is overdue for annual exam. She does not want control that can contribute to weight gain. [facility] Medical History (Updated 10/08/24 @ 14:02 by Sanna Guardado Jefry) Hirsutism Migraine with aura Anxiety No known health problems Surgical History No pertinent past surgical history Family History Mother Hypertension Father No problems noted. Social History Housing: House Alcohol intake: never Patient Tobacco Use Status: Never used Tobacco e-Cigarette/Vaping Use: Never Used Second Hand Smoke Exposure: No service: No Current occupational status: employed Current occupational exposures/hazards: No Cognitive needs: No Hearing needs: No Vision needs: No Female Reproductive History Menstrual control method: implanted Total pregnancies: 3 Full term: 1 Number of Living Children: 1 Ab induced: 3 Review of Systems Const All systems reviewed & are unremarkable except as noted in HPI and below Endo Reports no additional complaints Physical Exam Vital Signs: Last Vital Signs BP 110/60 10/08/24 13:54 BMI result Body Mass Index 37.4 Const General: cooperative, healthy appearing and no acute distress Skin Other: facial hair growth at jawline Psych Appearance: well kempt Attitude: cooperative Thought process: Normal thought process present Assessment & Plan Assessment & Plan (1) control counseling: Code(s): Z30.09 - Encounter for other general counseling and advice on contraception Plan: Discussed options for control progesterone only or non hormonal options with history of migraines with aura. IUD booklet given on the Mirena, Kyleena and ParaGard. Plan Schedule a Nexplanon removal, plan PCOS labs after removal. Use of condoms if indicated. Schedule annual exam. Coding Level of Care Code New Pt Level 3 (78201) Diagnoses control counseling Z30.
[2024-10-08 13:54] VITALS: BP 110/60; BMI 37.4
== END 2024-10-08 14:25 | disposition home or self-care (01) ==
PROVIDERS: Visit Provider Advanced Practice Midwife
DX: Z30.09 Encounter for other general counseling and advice on contraception (principal)
CPT/HCPCS: 99203

== ENCOUNTER → 2024-10-08 13:46 | Outpatient (BNVA) | payer OTHER, SELFPAY | PROVIDERS: Visit Provider Advanced Practice Midwife ==

== ENCOUNTER 2025-01-16 14:55 | Outpatient (AMB) | payer OTHER, SELFPAY ==
[2025-01-16 15:04] VITALS: BP 106/72; PULSE 63; RESP 20; TEMP 36.3; O2SAT 98; BMI 36.1
--- NOTE | 2025-01-16 15:04 | MHC.PC.OV ---
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 Required: No Accompanied by: Self / Same As Patient Allergies No Known Allergies Allergy (Verified 01/16/25 15:25) Medication List - Last Reconciled 01/16/25 by Susan Christian PA-C ascorbic acid (vitamin C) 250 mg PO DAILY cholecalciferol (vitamin D3) 25 mcg PO DAILY cranberry 500 mg PO BID etonogestrel (Nexplanon) subdermal multivitamin 1 tab PO DAILY sumatriptan succinate take 1 tab at onset of headache; if no relief may repeat 1 tab after at least 2 hrs; max = 4 tabs/24 hr PO Tobacco use date assessed: 01/16/25 Dental Screening Dental Screen Date: 01/16/25 Did you have a dental visit in the last 12 months?: Yes Did you have a dental problem in the last 6 months where you did not have access to dental care?: No Was dental information given to patient?: Patient has dentist HPI Annual PE HPI Details 29-year-old female with past medical history of anxiety, her she was in, depression and obesity last seen 09/2024 coming in for annual exam. Presenting with acne management, migraine treatment, and weight management. The patient reports persistent acne, described as cystic in nature, primarily located on the sides of her face. She has previously used Glynn Posay products, which caused further breakouts. Currently, she is not using any facial cleansers due to fear of exacerbating the condition. The patient has been prescribed sumatriptan, which she used successfully for a recent migraine episode. She reports no new allergies or medications since the last visit. The patient expresses concern about her weight plateauing at 200 pounds despite dietary efforts. She is interested in pharmacological interventions for weight loss, specifically GLP-1 receptor agonists like Mounjaro. She denies any family history of thyroid cancer or gallbladder issues. [facility] Medical History Hirsutism Migraine with aura Anxiety No known health problems Surgical History No pertinent past surgical history Family History Mother Hypertension Father No problems noted. Social History Housing: House Alcohol intake: never Patient Tobacco Use Status: Never used Tobacco e-Cigarette/Vaping Use: Never Used Second Hand Smoke Exposure: No service: No Current occupational status: employed Current occupational exposures/hazards: No Cognitive needs: No Hearing needs: No Vision needs: No Female Reproductive History Menstrual control method: implanted (Nexplanon) Questionnaire PHQ-9 Over the last 2 weeks, how often have you been bothered by any of the following problems? 1. Little interest or pleasure in doing things: not at all 2. Feeling down, depressed, or hopeless: not at all 3. Trouble falling or staying asleep, or sleeping too much: more than half the days 4. Feeling tired or having little energy: nearly every day 5. Poor appetite or overeating: nearly every day 6. Feeling bad about yourself - or that you are a failure or have let yourself or your family down: not at all 7. Trouble concentrating on things, such as reading the newspaper or watching television: not at all 8. Moving or speaking so slowly that other people could have noticed. Or the opposite - being so fidgety or restless that you have been moving around a lot more than usual: not at all 9. Thoughts that you would be better off or of hurting yourself in some way: not at all Total score: 8 Depression Screening Interpretation: Positive (counseling referral placed at last visit ) Depression Screening Follow-up: Existing condition and Declines treatment Depression Screening Done: Yes 84216 - PHQ-9 Billing: Yes Source: Developed by Drs. Evan José, Freida Soriano, Rosendo Laguerre and colleagues, with an educational christie from [employer]. Thrive Questionnaire Date Thrive assessed: 01/16/25 I am a: Patient What is your living situation today?: I have a steady place to live Within the past 12 months, did the food you bought not last and you didn't have the money to get more?: Sometimes True Within the past 12 months, did you worry whether your food would run out before you got money to buy more?: Sometimes True Do you have trouble paying for medicines?: No Do you have trouble getting transportation to medical appointments?: No Do you have trouble paying your heating and electricity bill?: No Do you have trouble taking care of your child, family member or friend?: No Do you have trouble with day-to-day activities such as bathing, preparing meals, shopping, managing finances, etc.?: No Are you currently unemployed and looking for a job?: No Are you interested in more education?: I choose not to answer this question Please select the resources that you would like help with: None Currently or been in a relationship where the following occur: No concerns reported THRIVE Score: 2 AUDIT C Alcohol Use Questionnaire (AUDIT-C) 1. How often do you have a drink containing alcohol?: Never Total Score: 0 Score Reviewed/Action Taken: No ZAY-7 AMB Questionnaire ZAY-7 Date ZAY - 7 assessed: 01/16/25 Feeling nervous, anxious, or on edge: 1 = Several days Not being able to stop or control worryin = Several days Worrying too much about different things: 3 = Nearly every day Trouble relaxin = Nearly every day Being so restless that it is hard to sit still: 0 = Not at all Becoming easily annoyed or irritable: 1 = Several days Feeling afraid as if something awful might happen: 3 = Nearly every day Total ZAY-7 score (0-4 normal; 5-9 mild; 10-14 moderate; 15-21 severe): 12 Source: Developed by Drs. Evan José, Freida Soriano, Rosendo Laguerre and colleagues, with an educational christie from [employer]. ZAY-7 Assessment Billing ZAY-7 Assessment Tool: ZAY-7 Assessment 30118 Review of Systems Const Denies body aches, Denies fatigue, Denies fever(s), Denies frequent falls, Denies headache(s) and Denies weakness Eyes Reports no additional complaints and Denies change in vision ENT Denies dysphagia, Denies dizziness, Denies facial pain, Denies headache(s), Denies nasal congestion and Denies odynophagia Card Denies chest pain, Denies syncope, Denies irregular heart rhythm, Denies leg edema, Denies lightheadedness and Denies dyspnea Resp Denies cough and Denies dyspnea GI Denies abdominal pain, Denies constipation, Denies dysphagia, Denies dyspepsia, Denies diarrhea, Denies nausea, Denies odynophagia and Denies vomiting Denies urinary frequency, Denies dysuria, Denies urinary hesitancy and Denies urinary urgency Musc Denies back pain and Denies myalgias Skin/Breast Reports system reviewed and no additional complaints, except as documented Neuro Denies dizziness, Denies syncope, Denies frequent falls, Denies headache(s) and Denies weakness Psych Reports no additional complaints Endo Denies fatigue Physical exam (Primary Care) Vital Signs: Last Vital Signs Temp 97.3 F 01/16/25 15:04 Pulse 63 01/16/25 15:04 Resp 20 01/16/25 15:04 BP 106/72 01/16/25 15:04 Pulse Ox 98 01/16/25 15:04 Oxygen Delivery Method Room Air 01/16/25 15:04 BMI result Body Mass Index 36.1 Tobacco/Smoking Status: Tobacco use Status Tobacco use date assessed 01/16/25 01/16/25 15:09 Patient Tobacco Use Status Never used Tobacco 01/16/25 15:09 e-Cigarette/Vaping Use Never Used 01/16/25 15:09 PHQ-9: PHQ-9 Score PHQ-9: Total score 8 01/16/25 15:17 Depression Screening Interpretation: Positive (counseling referral placed at last visit ) Depression Screening Follow-up: Existing condition and Declines treatment Thrive Assessment: Date of Thrive Assessment Date Thrive assessed 01/16/25 01/16/25 15:09 Currently or been in a relationship where the following occur: No concerns reported Const General: cooperative, healthy appearing, comfortable and no acute distress Orientation/consciousness: patient oriented x3 HENMT Head: Yes normocephalic Ears: hearing grossly normal bilaterally, external ears normal, TM's normal bilaterally and EAC's normal General nose exam: Normal external nose present Face and sinus: Yes normal facial exam and Yes sinuses nontender Mouth: Normal oral and palatal mucosa present and tongue normal Throat: Yes posterior oropharynx normal Eyes General: appearance normal, both eyes and all related structures Conjunctivae: conjunctivae normal Pupils: Equal, round and reactive pupils present EOM: EOMs intact bilaterally and No Nystagmus present Neck Neck: Yes normal visual inspection, Yes full ROM and Yes no lymphadenopathy Chest Chest palpation & inspection: normal inspection of the chest Resp Effort & Inspection: normal respiratory effort Auscultation: clear to auscultation bilaterally, no crackles, no rales, no rhonchi, no wheezes and breath sounds present Cardio Rate: regular rate Rhythm: regular rhythm Peripheral pulses: radial pulses present and dorsalis pedis present GI Inspection: Yes normal to inspection and No Abdominal wall edema Palpation (GI): Soft to palpation, not firm and nontender Auscultation: normal bowel sounds Rectal Exam - Female: deferred General: Yes no CVA tenderness Back/Spine/Pelvis Back: no CVA tenderness Skin General skin exam: no rashes or lesions noted Neuro General: patient oriented x3 Cranial nerves: Yes Equal, round and reactive pupils present, Yes Midline tongue present, Yes Ability to bilaterally elevate shoulders present and No Nystagmus present Gait exam (Neuro): Normal gait present Extrem General: Yes normal to inspection, Yes full ROM, No no pedal edema and No edema Psych Speech and movement: Normal speech and movement present Affect: normal affect Insight: Good insight present (Psych) Judgement: Good judgement present (Psych) Coding Level of Care Code Est Pt Prev Care 18-39y(03218) Diagnoses Annual physical exam Z00.00 Depression F32.A Anxiety F41.9 Migraine G43.909 Hirsutism L68.0 Acne L70.9 Obesity E66.9 Additional Codes ZAY-7 Assessment Billing - ZAY-7 Assessment Tool: ZAY-7 Assessment 99170 ([id number]) PHQ-9 - 23380 - PHQ-9 Billing: Yes ([id number]) Assessment & Plan Assessment & Plan (1) Annual physical exam: Code(s): Z00.00 - Encounter for general adult medical examination without abnormal findings Category: Medical Plan: Patient is up-to-date on all recommended routine screenings and vaccinations for her age. She is working on establishing with gynecology and we will be seen next week. Healthy diet and regular exercise is encouraged. Blood work is up-to-date and has been reviewed with the patient today. (2) Depression: Code(s): F32.A - Depression, unspecified Category: Medical Plan: Patient has a history of anxiety and depression is declining medical management at this time. Referral was placed to counseling at her last visit and she does have an upcoming appointment. (3) Anxiety: Code(s): F41.9 - Anxiety disorder, unspecified Category: Medical Plan: See above plan (4) Migraine: Code(s): G43.909 - Migraine, unspecified, not intractable, without status migrainosus Category: Medical Plan: Patient reporting occasional migraine headaches. Since her last visit she has had 1 headache which was successfully treated with sumatriptan. Continue on this medication as needed. (5) Hirsutism: Code(s): L68.0 - Hirsutism Category: Medical Plan: Reports of hirsutism since starting the Nexplanon. Nexplanon his planned to be removed next month and referral was also placed to dermatology at this time. (6) Acne: Code(s): L70.9 - Acne, unspecified Category: Medical Plan: Patient is requesting referral to Dermatology for acne. Referral was placed today. Also recommended use of Panoxyl or any other benzoyl peroxide based facial wash (7) Obesity: Code(s): E66.9 - Obesity, unspecified Category: Medical Plan: Healthy diet and regular exercise is encouraged. Patient was counseled today on the risks and benefits of GLP-1 injections as well as the dosing schedule. She has no family history or personal history of thyroid disease and no gallbladder disease. Discussed with the patient the potential GI side effects of this medication. Plan to have repeat blood work after one month of therapy to monitor kidney and liver function before increasing the dose of this medication. Follow up in 2 months for a weight check. Plan The patient will be referred to dermatology for further management of her acne vulgaris, with recommendations to try benzoyl peroxide-based face washes in the interim. For her migraines, the current prescription of sumatriptan will be continued as it has proven effective. In terms of weight management, the patient is interested in starting Mounjaro, a GLP-1 receptor agonist. Prior to initiation, an EKG will be performed to ensure cardiac safety, and liver function will be monitored throughout the treatment. Insurance coverage for Mounjaro will be verified, and if not covered, a referral to a weight data management analyst will be considered. The patient is advised to maintain hydration and a balanced diet to support her weight loss efforts. This note was constructed using voice recognition software. While every effort has been made to ensure accuracy and excelsior machine feeder, still areas may have been included sometimes these areas may affect the content or meeting of the given symptoms. Total time spent caring for the patient today was 30 minutes. This includes time spent before the visit reviewing the chart, time spent during the visit, and time spent after the visit and documentation. Patient was informed and verbally consented to the use of an ambient scribe for clinic note documentation during this visit. Orders: Orders Hemoglobin A1c Today E66.9 - Obesity, unspecified Comprehensive Met. Panel Today E66.9 - Obesity, unspecified, Z00.00 - Encounter for general adult medical examination without abnormal findings Referrals Dermatology Referral L68.0 - Hirsutism, L70.9 - Acne, unspecified Medications: New tirzepatide (Mounjaro) for 4 weeks 2.5 mg (0.5 mL) subcut QWEEK 2 mL 0RF
== END 2025-01-16 15:46 | disposition home or self-care (01) ==
LOC: HO.HMCH 14:56
DX: Z00.00 Encounter for general adult medical examination without abnormal findings (principal); E66.9 Obesity, unspecified; Z68.36 Body mass index [BMI] 36.0-36.9, adult; F32.A Depression, unspecified; F41.9 Anxiety disorder, unspecified; G43.909 Migraine, unspecified, not intractable, without status migrainosus; L68.0 Hirsutism; L70.9 Acne, unspecified

== ENCOUNTER → 2025-01-16 14:55 | Outpatient (BNVA) | payer OTHER, SELFPAY | DX: Z00.00 Encounter for general adult medical examination without abnormal findings (principal); F41.9 Anxiety disorder, unspecified; F32.A Depression, unspecified; E66.9 Obesity, unspecified; G43.909 Migraine, unspecified, not intractable, without status migrainosus; L68.0 Hirsutism; L70.9 Acne, unspecified; Z68.36 Body mass index [BMI] 36.0-36.9, adult | CPT/HCPCS: 96127 ==

== ENCOUNTER 2025-04-20 15:42 | Outpatient (AMB) | payer OTHER, SELFPAY ==
[2025-04-20 15:45] VITALS: BP 120/68; PULSE 80; O2SAT 98; BMI 37.1
--- NOTE | 2025-04-20 15:45 | A.OFFPC_ITS ---
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: No Accompanied by: Self / Same As Patient Allergies No Known Allergies Allergy (Verified 04/20/25 15:46) Medication List - Last Reconciled 04/20/25 by Susan Christian PA-C ascorbic acid (vitamin C) 250 mg PO DAILY cholecalciferol (vitamin D3) 25 mcg PO DAILY cranberry 500 mg PO BID etonogestrel (Nexplanon) subdermal multivitamin 1 tab PO DAILY sumatriptan succinate take 1 tab at onset of headache; if no relief may repeat 1 tab after at least 2 hrs; max = 4 tabs/24 hr PO Tobacco use date assessed: 01/16/25 Dental Screening Dental Screen Date: 01/16/25 Did you have a dental visit in the last 12 months?: No Did you have a dental problem in the last 6 months where you did not have access to dental care?: No Was dental information given to patient?: Patient has dentist HPI 3 month f/u HPI Details 29-year-old female with past medical his tory of anxiety, hirsutism, depression and obesity last seen 01/2025 coming in for follow up. Presenting for evaluation of weight management options and follow-up on previous health concerns. The patient experiences migraines occasionally, with medication used three times since prescription, providing relief. The patient reports se asonal allergies, likely due to ragweed, with symptoms improving over time. The patient is considering phentermine for weight management, requiring an EKG and blood work prior to prescription due to potential cardiac side effects. [facility] Medical History Hirsutism Migraine with aura Anxiety No known health problems Surgical History No pertinent past surgical history Family History Mother Hypertension Father No problems noted. Social History Housing: House Alcohol intake: never Patient Tobacco Use Status: Never used Tobacco e-Cigarette/Vaping Use: Never Used Second Hand Smoke Exposure: No service: No Current occupational status: employed Current occupational exposures/hazards: No Cognitive needs: No Hearing needs: No Vision needs: No Questionnaire Thrive Questionnaire Date Thrive assessed: 09/30/24 I am a: Patient What is your living situation today?: I have a steady place to live Within the past 12 months, did the food you bought not last and you didn't have the money to get more?: Sometimes True Within the past 12 months, did you worry whether your food would run out before you got money to buy more?: Sometimes True Do you have trouble paying for medicines?: No Do you have trouble getting transportation to medical appointments?: No Do you have trouble paying your heating and electricity bill?: No Do you have trouble taking care of your child, family member or friend?: No Do you have trouble with day-to-day activities such as bathing, preparing meals, shopping, managing finances, etc.?: No Are you currently unemployed and looking for a job?: No Are you interested in more education?: I choose not to answer this question Please select the resources that you would like help with: None Currently or been in a relationship where the following occur: No concerns reported THRIVE Score: 2 ZAY-7 AMB Questionnaire ZAY-7 Date ZAY - 7 assessed: 01/16/25 Source: Developed by Drs. Evan José, Freida Soriano, Rosendo Laguerre and colleagues, with an educational christie from [employer]. Review of Systems Const Denies body aches, Denies chills, Denies fever(s), Reports headache(s) (migraine occasionally ) and Denies poor appetite Eyes Reports no additional complaints ENT Denies dizziness and Reports headache(s) (migraine occasionally ) Card Denies chest pain, Denies syncope, Denies edema, Denies irregular heart rhythm, Denies lightheadedness and Denies dyspnea Resp Denies dyspnea GI Denies abdominal pain, Denies nausea and Denies vomiting Reports no additional complaints Musc Reports no additional complaints and Denies abnormal gait Skin/Breast Reports system reviewed and no additional complaints, except as documented Neuro Denies abnormal gait, Denies dizziness, Denies syncope and Reports headache(s) (migraine occasionally ) Psych Reports no additional complaints Physical exam (Primary Care) Vital Signs: Last Vital Signs Pulse 80 04/20/25 15:45 BP 120/68 04/20/25 15:45 Pulse Ox 98 04/20/25 15:45 Oxygen Delivery Method Room Air 04/20/25 15:45 BMI result Body Mass Index 37.1 Tobacco/Smoking Status: Tobacco use Status Tobacco use date assessed 01/16/25 04/20/25 15:49 Patient Tobacco Use Status Never used Tobacco 04/20/25 15:49 e-Cigarette/Vaping Use Never Used 04/20/25 15:49 Thrive Assessment: Date of Thrive Assessment Date Thrive assessed 09/30/24 04/20/25 15:49 Currently or been in a relationship where the following occur: No concerns reported Const General: cooperative, healthy appearing, comfortable and no acute distress Orientation/consciousness: patient oriented x3 HENMT Head: Yes normocephalic Ears: hearing grossly normal bilaterally General nose exam: Normal external nose present Eyes General: appearance normal, both eyes and all related structures Conjunctivae: conjunctivae normal Neck Neck: Yes full ROM and Yes no lymphadenopathy Resp Effort & Inspection: normal respiratory effort Auscultation: clear to auscultation bilaterally, no crackles, no rales, no rhonchi and no wheezes Cardio Rate: regular rate Rhythm: regular rhythm Skin General skin exam: no rashes or lesions noted Neuro General: patient oriented x3 Gait exam (Neuro): Normal gait present Extrem General: Yes normal to inspection, Yes full ROM and No edema Psych Affect: normal affect Attitude: cooperative Insight: Good insight present (Psych) Judgement: Good judgement present (Psych) Coding Level of Care Code Est Pt Level 3 (82148) Diagnoses Depression F32.A Hirsutism L68.0 Acne L70.9 Obesity E66.9 Decreased vision H54.7 Seasonal allergies J30.2 Assessment & Plan Assessment & Plan (1) Depression: Comment: [facility] monthly via tele Code(s): F32.A - Depression, unspecified Category: Medical Plan: Feels well managed with counseling monthly. (2) Hirsutism: Code(s): L68.0 - Hirsutism Category: Medical Plan: Reports of hirsutism since starting the Nexplanon. She missed her most recent appointment to of the Nexplanon removed due to a family emergency. She will be scheduled with gynecology and did recently complete laser hair treatment of the face as well. (3) Acne: Code(s): L70.9 - Acne, unspecified Category: Medical Plan: Patient has a appointment with Dermatology next month (4) Obesity: Code(s): E66.9 - Obesity, unspecified Category: Medical Plan: Healthy diet and regular exercise is encouraged. GLP 1 injection was declined by her insurance. Reminded patient about blood work. Patient is interested in phentermine and discussed at length possible side effects of this medication. Plan to obtain EKG in his long as blood work and EKG is WNL prescription will be sent to pharmacy. (5) Decreased vision: Code(s): H54.7 - Unspecified visual loss Category: Medical Plan: Referral was placed to eye doctor today (6) Seasonal allergies: Code(s): J30.2 - Other seasonal allergic rhinitis Category: Medical Plan: The patient reports seasonal allergies, likely due to ragweed, with symptoms improving. Bkev-ync-nscoten antihistamines like Zyrtec are recommended for symptom management. Plan This note was constructed using voice recognition software. While every effort has been made to ensure accuracy and scada engineer, still areas may have been included sometimes these areas may affect the content or meeting of the given symptoms. Total time spent caring for the patient today was 20 minutes. This includes time spent before the visit reviewing the chart, time spent during the visit, and time spent after the visit and documentation. Patient was informed and verbally consented to the use of an ambient scribe for clinic note documentation during this visit. Orders: Orders ECG 12 lead EKG Today E66.9 - Obesity, unspecified Referrals Optometry Referral H54.7 - Unspecified visual loss
== END 2025-04-20 16:45 | disposition home or self-care (01) ==
LOC: HO.HMCH 15:43
DX: F32.A Depression, unspecified (principal); L68.0 Hirsutism; Z68.37 Body mass index [BMI] 37.0-37.9, adult; E66.9 Obesity, unspecified; L70.9 Acne, unspecified; H54.7 Unspecified visual loss; J30.2 Other seasonal allergic rhinitis